=== PATIENT | female | born 1970 | race American Indian/Alaskan Native ===

== ENCOUNTER 2018-01-09 13:09 | Outpatient (CLI) | payer OTHER ==
--- NOTE | 2018-01-10 07:22 | Mammography Report ---
Bilateral mammogram: No previous studies available. CAD study utilized. Findings: Scattered glandular parenchyma bilaterally. Circumscribed density upper outer anterior and mid left breast. No microcalcification. Benign calcifications left breast. Normal axilla. Impression: Circumscribed density right and left breast. Recommend spot compression and if necessary sonographic examination. BI-RADS CATEGORY: 0 = Needs additional imaging evaluation ACR BI-RADS MAMMOGRAPHIC CODES: 0 = Needs additional imaging evaluation; 1 = Negative; 2 = Benign; 3 = Probably benign; 4 = Suspicious; 5 = Malignant; 6 = Known biopsy-proven malignancy COMMENT: 1. Dense breast tissue, i.e., adenosis, fibrocystic changes, etc., may obscure an underlying neoplasm. 2. Approximately 10% of cancers are not detected with mammography. 3. A negative mammography report should not delay biopsy if a clinically suspicious mass is present. COMMENT: Patient follow-up letters are generated in [employer].
== END 2018-01-09 13:10 | disposition home or self-care (01) ==
LOC: MAMMO 13:09
PROVIDERS: ATTEND Internal Medicine
DX: Z12.31 Encounter for screening mammogram for malignant neoplasm of breast (principal)
CPT/HCPCS: 77067

== ENCOUNTER 2018-06-25 13:33 | Outpatient (CLI) | payer OTHER ==
--- NOTE | 2018-06-25 14:57 | Mammography Report ---
BILATERAL DIGITAL DIAGNOSTIC MAMMOGRAM : 06/25/18 13:33:00 CLINICAL: Recalled for bilateral asymmetries. COMPARISON:01/09/18 screening FINDINGS: Bilateral additional mammographic views were performed and are negative.Satisfactory effacement of bilateral asymmetries. IMPRESSION: No mammographic evidence of malignancy. BI-RADS CATEGORY: 1 - - Negative RECOMMENDATION: Return to routine mammographic screening. ACR BI-RADS MAMMOGRAPHIC CODES: 0 = Needs additional imaging evaluation; 1 = Negative; 2 = Benign; 3 = Probably benign; 4 = Suspicious; 5 = Malignant; 6 = Known biopsy-proven malignancy COMMENT: 1. Dense breast tissue, i.e., adenosis, fibrocystic changes, etc., may obscure an underlying neoplasm. 2. Approximately 10% of cancers are not detected with mammography. 3. A negative mammography report should not delay biopsy if a clinically suspicious mass is present. COMMENT: Patient follow-up letters are generated by our [employer] application.
== END 2018-06-25 13:34 | disposition home or self-care (01) ==
LOC: MAMMO 13:33
PROVIDERS: ATTEND Internal Medicine
DX: R92.8 Other abnormal and inconclusive findings on diagnostic imaging of breast (principal)
CPT/HCPCS: 77066

== ENCOUNTER 2021-05-31 09:00 | Outpatient (CLI) | payer OTHER ==
--- NOTE | 2021-06-01 12:40 | Mammography Report ---
DIGITAL SCREENING MAMMOGRAM WITH CAD, 05/31/2021 CLINICAL INFORMATION / INDICATION: Routine screening mammography. TECHNIQUE: Digital bilateral 2D mammography was obtained in the craniocaudal and mediolateral obliqu e projections. This examination was interpreted with the benefit of Computer-Aided Detection analysis . COMPARISON: 06/25/2018, 01/09/2018 FINDINGS: Breast Density: There are scattered areas of fibroglandular density. No dominant mass, suspicious calcifications, or architectural distortion in the right breast. Overall, multiple groups of calcifications have increased in number throughout the middle/posterior d epth of the upper outer left breast. No other significant abnormality of the left breast. IMPRESSION: Interval increase in number of calcifications in the left breast without other evidence o f malignancy. Further evaluation with magnification views of the left breast is recommended. Follow up recommendation: Special View: Mag BI-RADS Category 0: INCOMPLETE. Needs additional imaging evaluation and/or prior mammograms for jose rafael rison. A "normal" or negative report should not discourage follow up or biopsy of a clinically significant f inding. A written summary of these findings will be mailed to the patient. The patient will be entered into a mammography reporting system which will generate a reminder letter for the patient's next appointmen t at the appropriate interval. The [employer] recommends yearly mammograms starting at age 40 and continuing as l jorge as a woman is in good health. Breast MRI is recommended for women with an approximate 20-25% or greater lifetime risk of breast cancer, including women with a strong family history of breast or ova venecia cancer or who have been treated for Hodgkin's disease. Signer Name: López López MD Signed: 06/01/2021 12:36 PM Workstation Name: [email or web address]
== END 2021-05-31 09:01 | disposition home or self-care (01) ==
LOC: MAMMO 09:00
PROVIDERS: ATTEND Internal Medicine
DX: Z12.31 Encounter for screening mammogram for malignant neoplasm of breast (principal); N64.89 Other specified disorders of breast
CPT/HCPCS: 77067

== ENCOUNTER 2021-07-20 09:08 | Outpatient (CLI) | payer OTHER ==
--- NOTE | 2021-07-20 14:22 | Mammography Report ---
DIGITAL DIAGNOSTIC MAMMOGRAM WITH CAD , 07/20/2021 CLINICAL INFORMATION / INDICATION: Callback for abnormal mammogram. TECHNIQUE: Digital left mammographic imaging was performed. Magnification views were obtained. This examination was interpreted with the benefit of Computer-aided Detection analysis. COMPARISON: 05/31/2021 FINDINGS: Breast Density: There are scattered areas of fibroglandular density. Scattered calcifications are seen throughout the upper outer quadrant of the left breast, some of the m grouped and heterogeneous in appearance. I would target the more prominent area of grouped calcific ations in the deep central left breast, posterior depth, for biopsy. IMPRESSION: Heterogeneous calcifications are noted throughout the upper outer left breast. There is a more prominent area of grouped calcifications in the deep central left breast which should be target ed for stereotactic biopsy. Findings are low suspicion for malignancy. Follow up recommendation: Biopsy BI-RADS Category 4: SUSPICIOUS FOR MALIGNANCY. A "normal" or negative report should not discourage follow up or biopsy of a clinically significant f inding. A written summary of these findings will be mailed to the patient. The patient will be entered into a mammography reporting system which will generate a reminder letter for the patient's next appointmen t at the appropriate interval. According to the [employer], yearly mammograms are recommended starting at age 40 and continuing as long as a woman is in good health. Breast MRI is recommended for women with an woodrow roximately 20-25% or greater lifetime risk of breast cancer, including women with a strong family his tory of breast or ovarian cancer and women who have been treated for Hodgkin's disease. Signer Name: Brittany Pace MD Signed: 07/20/2021 2:18 PM Workstation Name: [id number]
== END 2021-07-20 09:09 | disposition home or self-care (01) ==
LOC: MAMMO 09:08
PROVIDERS: ATTEND Internal Medicine
DX: Z01.89 Encounter for other specified special examinations (principal); R92.8 Other abnormal and inconclusive findings on diagnostic imaging of breast

== ENCOUNTER 2021-08-04 11:33 | Outpatient (CLI) | payer OTHER ==
--- NOTE | 2021-08-04 13:28 | Ultrasound Report ---
ULTRASOUND BREAST LEFT LIMITED, 08/04/2021 CLINICAL INFORMATION / INDICATION: We are requested to try to identify calcifications recommended for biopsy on recent mammogram with ultrasound or any associated mass with the calcifications. TECHNIQUE: Targeted ultrasound evaluation was performed of the area of interest. COMPARISON: Recent mammogram 07/20/2021, 05/31/2021 FINDINGS: Sonographic evaluation of the retroareolar left breast, targeting areas where there are known calcifi cations mammographically, demonstrated a few small subcentimeter simple cysts. No solid mass or area of shadowing is noted. No visible calcifications could be identified. IMPRESSION: Mild fibrocystic change. No visible calcifications or abnormal soft tissue mass identifie d. Recommendation for biopsy of the calcifications in the left breast remains. Follow up recommendation: Biopsy BI-RADS Category 4: SUSPICIOUS FOR MALIGNANCY. A normal or "negative" report should not preclude biopsy or follow-up of a clinically suspicious find ing. Signer Name: Brittany Pace MD Signed: 08/04/2021 1:23 PM Workstation Name: [email or web address]
== END 2021-08-04 11:34 | disposition home or self-care (01) ==
LOC: US 11:33
PROVIDERS: ATTEND Surgery
DX: R92.1 Mammographic calcification found on diagnostic imaging of breast (principal); N63.20 Unspecified lump in the left breast, unspecified quadrant; N64.89 Other specified disorders of breast

== ENCOUNTER 2021-08-23 08:50 | Outpatient (CLI) | payer OTHER ==
--- NOTE | 2021-08-23 14:46 | Mammography Report ---
STEREOTACTIC GUIDED LEFT BREAST BIOPSY, 08/23/2021 CLINICAL INFORMATION / INDICATION: Suspicious calcifications within the posterior third of the left o uter central breast.. COMPARISON: Diagnostic mammogram dated 08/23/2021 and screening mammogram dated 05/31/2021 PROCEDURE: Risks, benefits, and indications to the procedure were discussed with the patient in detail, includin g bleeding, infection, hematoma formation, and inadequate tissue sampling. The patient agreed to proc eed with both verbal and written consent. A timeout procedure was performed with 2 patient identifier s. The patient was placed in the seated upright position at the mammogram machine. Targeted stereotactic images were obtained of the area of interest. The targeted area was identified and coordinates were determined. The breast was cleansed and prepped in the usual sterile fashion. Lidocaine 1% with and w ithout epinephrine was used for local anesthesia. Under direct stereotatic guidance, an 8 gauge Mammo tome biopsy device was advanced to the correct position and multiple vacuum-assisted core samples wer e obtained. Postbiopsy images confirm satisfactory tissue sampling within the biopsy cavity. A biopsy marker was then deployed at the biopsy site. The biopsy device was removed. Hemostasis was achieved with manual pressure. A sterile pressure dressing was applied to the skin. Post-biopsy mammogram was obtained, indicating appropriate positioning of the biopsy marker and biopsy site. The patient tolerated the procedure without difficulty. No complications were encountered. Postbiopsy instructions were discussed with the patient and given in writing. IMPRESSION: 1. Technically successful stereotactic guided left breast biopsy. Biopsy results are pending and will be reported in an addendum. Signer Name: Shane Ponce DO Signed: 08/23/2021 2:33 PM Workstation Name: [id number]
== END 2021-08-23 08:51 | disposition home or self-care (01) ==
LOC: SPVWC 08:50
PROVIDERS: ATTEND Surgery
DX: R92.1 Mammographic calcification found on diagnostic imaging of breast (principal); N64.89 Other specified disorders of breast; N60.12 Diffuse cystic mastopathy of left breast; Z79.899 Other long term (current) drug therapy
CPT/HCPCS: 19081; 77065; 88305; A4648